=== PATIENT | female | born 1950 | race Two or more races ===

== ENCOUNTER 2018-08-15 08:00 | Emergency (ER) | payer OTHER ==
[~2018-08-15] VITALS: Ht 160 cm; Wt 81.6 kg
[2018-08-15] MEDS ORDERED: SYNTHROID175 MCG (08:58)
== END 2018-08-15 12:12 | disposition home or self-care (01) ==
LOC: ER 08:00
DX: M25.561 Pain in right knee (principal); M54.5 Low back pain; S80.01XS Contusion of right knee, sequela; S30.0XXA Contusion of lower back and pelvis, initial encounter; W18.09XA Striking against other object with subsequent fall, initial encounter

== ENCOUNTER 2019-02-09 11:13 | Emergency (ER) | payer OTHER ==
[~2019-02-09] VITALS: Ht 167.6 cm; Wt 86.2 kg
[~2019-02-09 11:13] MED LIST: SYNTHROID175 MCG
== END 2019-02-09 14:04 | disposition home or self-care (01) ==
LOC: ER 11:13
DX: S80.01XA Contusion of right knee, initial encounter (principal); W10.8XXA Fall (on) (from) other stairs and steps, initial encounter; Y93.89 Activity, other specified; Y92.018 Other place in single-family (private) house as the place of occurrence of the external cause; Y99.8 Other external cause status

== ENCOUNTER 2020-04-19 11:53 | Emergency (ER) | payer OTHER ==
[~2020-04-19] VITALS: Ht 167.6 cm; Wt 95.3 kg
[2020-04-19] MEDS ORDERED: SYNTHROID200 MCG (12:44)
[2020-04-19] MEDS ORDERED: ZEGERID 40 MG1 EACH (12:44)
[2020-04-19] MEDS ORDERED: PEPCID40 MG (12:45)
== END 2020-04-19 22:20 | disposition home or self-care (01) ==
LOC: ER 11:53
DX: K57.30 Diverticulosis of large intestine without perforation or abscess without bleeding (principal); K62.5 Hemorrhage of anus and rectum; Z03.818 Encounter for observation for suspected exposure to other biological agents ruled out

== ENCOUNTER 2021-12-18 21:46 | Emergency (ER) | payer OTHER ==
[~2021-12-18] VITALS: Ht 167.6 cm; Wt 78.5 kg
[~2021-12-18 21:46] MED LIST changes: +PEPCID40 MG; +SYNTHROID200 MCG; +ZEGERID 40 MG1 EACH
[2021-12-18] MEDS ORDERED: LOSARTAN POTASS50 MG PO (22:18)
[2021-12-19] MEDS ORDERED: DICLOFENAC SODI75 MG PO (01:41)
== END 2021-12-19 01:47 | disposition home or self-care (01) ==
LOC: ER 21:46
DX: M54.16 Radiculopathy, lumbar region (principal); M79.652 Pain in left thigh; I10 Essential (primary) hypertension

== ENCOUNTER 2023-03-14 09:08 | Outpatient (CLI) | payer OTHER ==
[~2023-03-14 09:08] MED LIST changes: +DICLOFENAC SODI75 MG PO; +LOSARTAN POTASS50 MG PO
== END 2023-03-14 09:15 | disposition home or self-care (01) ==
LOC: TOM 09:08
PROVIDERS: ATTEND General Practice
DX: M17.11 Unilateral primary osteoarthritis, right knee (principal); Z48.89 Encounter for other specified surgical aftercare

== ENCOUNTER 2024-05-22 12:32 | Emergency (ER) | payer OTHER ==
[~2024-05-22] VITALS: Ht 167.6 cm; Wt 78.5 kg
[~2024-05-22 12:32] MED LIST changes: +CLARITIN10 MG PO; +ZITHROMAX500 MG PO
[2024-05-22] MEDS ORDERED: ORPHENADRINE CITRATE 30 MG/ML AMPUL IM STA (13:26)
[2024-05-22] MEDS ORDERED: KETOROLAC TROMETHAMINE 60 MG VIAL IM STA (13:26)
[2024-05-22] MEDS ORDERED: KETOROLAC TROMETHAMINE 60 MG VIAL IM ONE (13:39)
[2024-05-22] MEDS ORDERED: ORPHENADRINE CITRATE 30 MG/ML AMPUL ONE (13:39)
== END 2024-05-22 13:40 | disposition home or self-care (01) ==
LOC: ER 12:35
DX: M51.26 Other intervertebral disc displacement, lumbar region (principal)

== ENCOUNTER 2025-01-22 09:26 | Emergency (ER) | payer OTHER ==
[~2025-01-22] VITALS: Ht 167.6 cm; Wt 74.8 kg
[2025-01-22 09:33] VITALS: BP 137/67; O2SAT 96
[2025-01-22] MEDS ORDERED: NEURONTIN300 MG PO (09:34)
[2025-01-22] MEDS ORDERED: VIVLODEX10 MG PO (09:35)
[2025-01-22] MEDS ORDERED: ORPHENADRINE CITRATE 30 MG/ML AMPUL ONE (09:53)
[2025-01-22] MEDS ORDERED: KETOROLAC TROMETHAMINE 60 MG VIAL IM ONE ×2 (09:54→10:00)
[2025-01-22] MEDS ORDERED: ORPHENADRINE CITRATE 30 MG/ML AMPUL IM ONE (10:00)
[2025-01-22] MEDS ORDERED: NORFLEX100MG PO (11:35)
== END 2025-01-22 11:42 | disposition home or self-care (01) ==
LOC: ER 09:26
DX: M25.511 Pain in right shoulder (principal); I10 Essential (primary) hypertension
CPT/HCPCS: 72040; 73030; 96372; 99283; J1885; J2360

== ENCOUNTER 2025-02-05 12:00 | Outpatient (CLI) | payer OTHER ==
[~2025-02-05 12:00] MED LIST changes: +NEURONTIN300 MG PO; +NORFLEX100MG PO; +VIVLODEX10 MG PO
== END 2025-02-05 12:04 | disposition home or self-care (01) ==
LOC: MRI 12:00
PROVIDERS: ATTEND Orthopaedic Surgery
DX: M75.121 Complete rotator cuff tear or rupture of right shoulder, not specified as traumatic (principal); M25.511 Pain in right shoulder
CPT/HCPCS: 73221